=== PATIENT | female | born 2000 | race Caucasian/White ===

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

== ENCOUNTER → 2020-05-28 | Outpatient (CLI) | payer OTHER ==
[2020-05-28 10:09] VITALS: BP 123/47; PULSE 64; RESP 16; TEMP 98.7
--- NOTE | 2020-05-28 10:41 | P.HPOB ---
History of Present Illness H&P Date: 05/28/20 Chief Complaint: The patient is here to renew control and for her gyne cologic exam This is a 20-year-old G0 with an LMP of 05/13/2020. She continues to use the NuvaRing without problems. She is without gynecologic complaints. She states she does not plan to get in the near future. Review of Systems The patient has gained 3 pounds over the last year. She denies respiratory or cardiac problems. GI: She has been having issues with frequent diarrhea and she believes she has Crohn's disease. She has been seeing a GI doctor for this. Past Medical History Past Medical History: Asthma Additional Past Medical History / Comment(s): Possible Crohns Dz. Asthma as a child. 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 She states she has completed her HPV vaccination series. History of Any Multi-Drug Resistant Organisms: None Reported Past Surgical History: No Surgical Hx Reported Additional Past Surgical History / Comment(s): Upper endoscopy and colonoscopy 08/2018(2nd). Additional Past Anesthesia/Blood Transfusion Reaction / Comment(s): Pt has never had anesthesia Past Psychological History: ADD/ADHD Additional Psychological History / Comment(s): Pt states she had ADD/ADHD as a child. She resides with her mother. She works at [employer]. 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 Smoking Status: Vaper (She vapes nicotine.) Past Alcohol Use History: Rare (3 per year) Additional Past Alcohol Use History / Comment(s): Pt started vaping in 2014. Past Drug Use History: Marijuana Additional Drug Use History / Comment(s): Pt states she smokes less than 2 joints a day Additional History: She is single and has been with her boyfriend since 2018. They live together. She works for a [employer]. - Past Family History Mother Family Medical History: No Reported History Additional Family Medical History / Comment(s): Maternal grandmother had thyroid cancer Father Additional Family Medical History / Comment(s): Pt states she has not spoken to her father in a long time. She knows he has hernias, DJD and is an alcoholic. Medications and Allergies Home Medications Medication Instructions Recorded Confirmed Type Ibuprofen [Motrin Ib] 400 mg PO Q6H PRN 04/06/18 05/28/20 History Ondansetron [Zofran ODT] 4 mg PO Q8HR PRN 05/16/18 05/28/20 History Etonogestrel/Ethinyl Estradiol 1 ring VAGINAL Q28D #3 vaginalrin 05/10/19 05/28/20 Rx [Nuvaring Vaginal Ring] Allergies Allergy/AdvReac Type Severity Reaction Status Date / Time No Known Allergies Allergy Verified 05/28/20 09:58 Exam Vital Signs Temp Pulse Resp BP Pulse Ox 05/28/20 09:59 98.7 F 64 16 123/47 100 Intake and Output 05/27/20 05/28/20 05/28/20 22:59 06:59 14:59 Other: Weight 86.636 kg Height 5 feet 8 and half inches, weight 191 pounds, BMI 28.6. This is a well-developed well-nourished white female who is alert and oriented times 3 in no acute distress. HEENT: Within normal limits. NECK: Supple without mass or thyromegaly. CHEST AND LUNGS: Clear to auscultation. HEART: Regular rate and rhythm. BREASTS: Are without mass or discharge. AXILLARY EXAM: Negative for adenopathy. BACK: Negative for CVA tenderness. ABDOMEN: Soft, nontender, without palpable masses. PELVIC EXAM: Normal external genitalia. Cervix and vagina appear normal. There is no unusual discharge. There is no evidence of prolapse. The uterus is midposition, nongravid size and nontender. There are no palpable adnexal masses or tenderness. RECTAL EXAM: Deferred. EXTREMITIES: Nontender. IMPRESSION: 1. 20-year-old female using the NuvaRing for control with normal gynecologic exam. 2. She has completed her HPV vaccination series. PLAN: 1. Pap smear was deferred until age 21. 2. GC and chlamydia screening was obtained from the cervix. 3. Self breast awareness was discussed with the patient. 4. I have warned the patient about dangers of vaping including possible damage to the lungs. I have recommended that she try to quit. 5. She will continue the NuvaRing and the electronic prescription will be sent to [facility] pharmacy on . We have discussed that some medications can decrease the effectiveness of the NuvaRing. She understands that she should always check with her pharmacist to see if any medications she is taking or medications that are prescribed can decrease the effectiveness of her control. I have recommended that she use a backup such as condoms if this is the case. 6. She was advised to return in one year for her annual well woman exam.
--- NOTE | 2020-06-04 10:18 | P.PN ---
Progress Note - Text Progress Note Date: 06/04/20 OUTPATIENT FOLLOW-UP NOTE TEST(S)/RESULTS: Test results from 05/28/2020 include negative GC and negative chlamydia testing. METHOD OF NOTIFICATION: The patient was notified by phone. PATIENT COMMENTS: DIAGNOSIS: Negative GC and chlamydia screening. DISCUSSION: PLAN: She was advised to return in one year for her annual well woman exam.
== END | disposition home or self-care (01) ==
LOC: WWCWWP 09:40
PROVIDERS: ATTEND Obstetrics & Gynecology
DX: Z53.9 Procedure and treatment not carried out, unspecified reason (principal)

== ENCOUNTER → 2021-05-20 | Outpatient (CLI) | payer OTHER ==
[2021-05-20 14:15] VITALS: BP 102/69; PULSE 79; RESP 18; TEMP 98.3
--- NOTE | 2021-05-20 14:52 | P.HPOB ---
History of Present Illness H&P Date: 05/20/21 Chief Complaint: The patient is here for her routine gynecologic exam. This is a 21-year-old G0 with an LMP of 05/05/2021. The patient continues to use the NuvaRing without problems. She is not interested in getting in the immediate future. She is without gynecologic complaints. Review of Systems The patient has gained 8 pounds over the last year. She denies respiratory, cardiac, or G.I. problems. Past Medical History Past Medical History: Asthma Additional Past Medical History / Comment(s): Possible Crohns Dz. Asthma as a child. 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 She states she has completed her HPV vaccination series. History of Any Multi-Drug Resistant Organisms: None Reported Past Surgical History: No Surgical Hx Reported Additional Past Surgical History / Comment(s): Upper endoscopy and colonoscopy 08/2018(2nd). Additional Past Anesthesia/Blood Transfusion Reaction / Comment(s): Pt has never had anesthesia Past Psychological History: ADD/ADHD Additional Psychological History / Comment(s): Pt states she had ADD/ADHD as a child. Smoking Status: Vaper (Daily) Past Alcohol Use History: Rare (10 per year) Additional Past Alcohol Use History / Comment(s): Pt started vaping in 2014. Past Drug Use History: Marijuana (Daily) Additional Drug Use History / Comment(s): Pt states she smokes less than 2 joints a day Additional History: She is single and has been with her boyfriend since 2018. They live together. She works for [employer]. - Past Family History Mother Family Medical History: No Reported History Additional Family Medical History / Comment(s): Maternal grandmother had thyroid cancer Father Additional Family Medical History / Comment(s): Pt states she has not spoken to her father in a long time. She knows he has hernias, DJD and is an alcoholic. Medications and Allergies Home Medications Medication Instructions Recorded Confirmed Type Ibuprofen [Motrin Ib] 400 mg PO Q6H PRN 04/06/18 05/20/21 History Ondansetron [Zofran ODT] 4 mg PO Q8HR PRN 05/16/18 05/20/21 History Etonogestrel/Ethinyl Estradiol 1 ring VAGINAL Q28D #3 vaginalrin 05/28/20 05/20/21 Rx [Nuvaring Vaginal Ring] Allergies Allergy/AdvReac Type Severity Reaction Status Date / Time No Known Allergies Allergy Verified 05/20/21 14:09 Exam Vital Signs Temp Pulse Resp BP Pulse Ox 05/20/21 14:10 98.3 F 79 18 102/69 96 Intake and Output 05/19/21 05/20/21 05/20/21 22:59 06:59 14:59 Other: Weight 90.265 kg Height 5 feet 8 inches, weight 199 pounds, BMI 30.3. This is a well-developed well-nourished white female who is alert and oriented times 3 in no acute distress. HEENT: Within normal limits. NECK: Supple without mass or thyromegaly. CHEST AND LUNGS: Clear to auscultation. HEART: Regular rate and rhythm. BREASTS: Are without mass or discharge. AXILLARY EXAM: Negative for adenopathy. BACK: Negative for CVA tenderness. ABDOMEN: Soft, nontender, without palpable masses. PELVIC EXAM: Normal external genitalia. Cervix and vagina appear normal. There is no unusual discharge. There is no evidence of prolapse. The uterus is midposition, nongravid size and nontender. There are no palpable adnexal masses or tenderness. RECTAL EXAM: Deferred. EXTREMITIES: Nontender. IMPRESSION: 1. 21-year-old female with normal gynecologic exam. 2. Doing well using NuvaRing for control. PLAN: 1. Pap smear was performed. This will be cytology only. 2. Self breast awareness was discussed with the patient. We have also discussed symptoms associated with inflammatory breast cancer. 3. Weight control was discussed. I have stressed the importance of good nutrition, regular meals and regular exercise. 4. She has completed her Covid vaccination series. 5. We have discussed how there are potential risks with taping and marijuana us e. 6. She will continue to use NuvaRing for control. The electronic prescription for this will be sent to [facility] pharmacy on . I have also recommended that she take a daily multivitamin with folic acid when she decides to discontinue the NuvaRing or if she is contemplating attempting . 7. GC and chlamydia screening was obtained from the cervix. 8. She was advised to return in one year for her annual well woman exam.
== END ==
LOC: WWCWWP 13:55
PROVIDERS: ATTEND Obstetrics & Gynecology
DX: Z01.419 Encounter for gynecological examination (general) (routine) without abnormal findings (principal); J45.909 Unspecified asthma, uncomplicated; F17.290 Nicotine dependence, other tobacco product, uncomplicated